=== PATIENT | male | born 1960 | race Caucasian/White ===

== ENCOUNTER 2020-11-06 10:24 | Outpatient (CLI) | payer BC, SELFPAY ==
--- NOTE | 2020-11-06 10:36 | XR_ITS ---
WS: [id number] Lumbar spine, 3 views, 11/06/2020 Clinical Data: M43.27 - Fusion of spine, lumbosacral region Comparison: None. Findings: No compression fractures or subluxation is seen. The patient has had a posterior fusion at L5-S1 with bilateral pedicle screws connected with rods. There is an interbody fusion at L5-S1. Anterior osteoa rthritic spurring of all the lumbar vertebral bodies is noted. There is a slight dextroscoliosis. The transverse processes and SI joints are unremarkable. There is a large amount of fecal material throu ghout the colon. XR/XR lumbar spine 2-3V* [id number] Impression: 1. Posterior lumbar fusion at L5-S1 with interbody fusion at L5-S1. 2. 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
== END 2020-11-06 10:25 | disposition home or self-care (01) ==
PROVIDERS: PCP Registered Nurse; Visit Provider Registered Nurse
DX: M43.27 Fusion of spine, lumbosacral region (principal)
CPT/HCPCS: 72100